=== PATIENT | male | born 1960 | race Hispanic/Latino ===

== ENCOUNTER 2018-07-29 09:25 | Emergency (ER) | payer MEDICARE ==
[~2018-07-29] VITALS: Ht 160 cm; Wt 70.5 kg
[~2018-07-29 09:25] MED LIST: ASPIRIN LOW81 M1 PO; GLYBURIDE2.5 M1 PO; LOVASTATIN10 M1 PO; METFORMIN1000 MG PO; NAPROSYN500 MG PO; glucometer SC
[2018-07-29 10:17] LABS: HEMATOCRIT 22.1 % (39.0-50.0); HEMOGLOBIN 7.4 g/dl (14.0-18.0); IMMATURE GRANULOCYTES 0.3 % (0.0-5.0); MEAN CELL VOLUME 89.8 fL CALC (80.0-100.0); MEAN CORPUSCULAR HGB 30.1 pG CALC (26.0-32.0); MEAN CORPUSCULAR HGB CONC 33.5 g/L CALC (32.0-36.0); NEUT# 7.09 thou/uL (1.82-7.42); RED BLOOD COUNT 2.46 mill/uL (4.70-6.10); RED CELL DISTRI WIDTH 12.5 % (11.5-15.5)
[2018-07-29 11:25] LABS: ALBUMIN 3.3 g/dL (3.2-5.0); BILIRUBIN, TOTAL 0.3 mg/dL (0.0-1.4); TOTAL PROTEIN 6.7 g/dL (6.3-8.2)
[2018-07-29 11:28] LABS: POTASSIUM 5.2 mmol/l (3.5-5.1)
[2018-07-29 11:29] LABS: CREATININE 8.6 mg/dL (0.7-1.3)
[2018-07-29] MEDS ORDERED: FUROSEMIDE40 MG PO (12:31)
[2018-07-29] MEDS ORDERED: LEVOTHYROXIN50 MCG PO (12:31)
[2018-07-29] MEDS ORDERED: LISINOPRIL20 MG PO (12:31)
[2018-07-29] MEDS ORDERED: CYMBALTA30 MG PO (12:32)
[2018-07-29] MEDS ORDERED: LIPITOR20 M1 PO (12:32)
[2018-07-29] MEDS ORDERED: GABAPENTIN100 MG PO (12:33)
[2018-07-29] MEDS ORDERED: LEVEMIR FL100 UNIT/M SC (12:35)
[2018-07-29 14:07] LABS: URINE BILIRUBIN - DIPSTICK NEGATIVE (NEGATIVE); URINE BLOOD DIPSTICK MODERATE (NEGATIVE); URINE COLOR YELLOW; URINE GLUCOSE - DIPSTICK 100 mg/dL (NEGATIVE); URINE KETONE NEGATIVE (NEGATIVE); URINE LEUK ESTERASE NEGATIVE (NEGATIVE); URINE NITRITE - DIPSTICK NEGATIVE (Negative); URINE PROTEIN - DIPSTICK >=300 mg/dL (NEG-TRACE); URINE UROBILINOGEN - DIPSTICK 0.2 E.U./dL (0.2)
[2018-07-29 14:42] LABS: URINE SQUAMOUS EPITHELIAL CELL FEW EPI/hpf (0-FEW)
[2018-07-29 15:13] VITALS: BP 138/69
== END 2018-07-29 15:13 | disposition short-term general hospital (02) ==
LOC: ED 09:25
PROVIDERS: Family Medicine
DX: I12.9 Hypertensive chronic kidney disease with stage 1 through stage 4 chronic kidney disease, or unspecified chronic kidney disease (principal); N18.9 Chronic kidney disease, unspecified; N17.9 Acute kidney failure, unspecified